=== PATIENT | male | born 1955 | race Caucasian/White ===

== ENCOUNTER 2017-08-29 12:44 | Emergency (ER) | payer OTHER ==
[2017-08-29 13:31] VITALS: BP 122/85
--- NOTE | 2017-08-29 13:50 | UC ---
Cardiac HPI - HPI Summary HPI Summary: Pt is a 62 y/o M c/o cough and pleuritic CP onset 1100 on Saturday (4 days) resolving [employer]. Associated Sx: MONTE (dull), fever, chills, stiff neck, sputum ( occasional; yellow). Denies: SOB. Aggravating factors: Respiration. Alleviating factors: OTC pain meds (ASA and tylenol) temporarily relieve Sx. PMHx: kidney stones. - History of Current Complaint Chief Complaint: UCRespiratory Stated Complaint: COUGH CHILLS Time Seen by Provider: 08/29/17 13:34 Hx Obtained From: Patient Onset/Duration: Lasting Days - Since Saturday AM Current Severity: Moderate Pain Intensity: 4 Chest Pain Location: Mid Sternal Character: Dull/Aching - MONTE - Allergy/Home Medications Allergies/Adverse Reactions: Allergies Allergy/AdvReac Type Severity Reaction Status Date / Time cephalexin [From Keflex] Allergy Rash Verified 08/29/17 13:24 ciprofloxacin Allergy Rash Verified 08/29/17 13:31 Home Medications: Home Medications Aspirin 81 mg CHEW TAB* 1 tab PO DAILY 08/29/17 [History Confirmed 08/29/17] Lisinopril 20 mg PO DAILY 08/29/17 [History Confirmed 08/29/17] Simvastatin 20 mg PO DAILY 08/29/17 [History Confirmed 08/29/17] PMH/Surg Hx/FS Hx/Imm Hx - Surgical History Surgical History: Yes Surgery Procedure, Year, and Place: TONSILECTOMY - Social History Alcohol Use: Rare Substance Use Type: None Smoking Status (MU): Never Smoked Tobacco Physical Exam Vital Signs: Initial Vital Signs Temp 99 F 08/29/17 13:24 Pulse 77 08/29/17 13:24 Resp 16 08/29/17 13:24 BP 122/85 08/29/17 13:24 Pulse Ox 100 08/29/17 13:24 Discharge - Discharge Plan Referrals: Myron Ryan MD [Primary Care Provider] -
--- NOTE | 2017-08-29 13:59 | UC ---
Respiratory Complaint HPI - HPI Summary HPI Summary: Pt is a 62 y/o M c/o productive cough with yellow phlegm onset four days ago and worsening. Associated Sx: dull MONTE and stiff neck which have since resolved; chills, pleuritic CP, fever (101-102 F). Denies: SOB. Aggravating factors: Respiration. Alleviating factors: OTC pain meds (ASA and tylenol) which temporarily relieved Sx. PMHx: kidney stones. - History of Current Complaint Chief Complaint: UCRespiratory Stated Complaint: COUGH CHILLS Time Seen by Provider: 08/29/17 13:34 Hx Obtained From: Patient Onset/Duration: Gradual Onset, Lasting Days - 4 days, Still Present - cough, Resolved - MONTE and stiff neck Timing: Constant Severity Currently: Mild Pain Intensity: 4 Character: Cough: Productive, Sputum Description: - yellow Aggravating Factors: Deep Breaths Alleviating Factors: OTC Meds - ASA/tylenol Associated Signs And Symptoms: Positive: Fever, Chills, Pleuritic Chest Pain - Allergies/Home Medications Allergies/Adverse Reactions: Allergies Allergy/AdvReac Type Severity Reaction Status Date / Time cephalexin [From Keflex] Allergy Rash Verified 08/29/17 13:24 ciprofloxacin Allergy Rash Verified 08/29/17 13:31 Home Medications: Home Medications Aspirin 81 mg CHEW TAB* 1 tab PO DAILY 08/29/17 [History Confirmed 08/29/17] Lisinopril 20 mg PO DAILY 08/29/17 [History Confirmed 08/29/17] Simvastatin 20 mg PO DAILY 08/29/17 [History Confirmed 08/29/17] PMH/Surg Hx/FS Hx/Imm Hx Endocrine History: Other Other Endocrine History: Neg: diabetes GI/ History: Kidney Stones - Surgical History Surgical History: Yes Surgery Procedure, Year, and Place: TONSILECTOMY - Family History Known Family History: Negative: Cardiac Disease, Hypertension, Diabetes - Social History Occupation: Employed Full-time Lives: With Family Alcohol Use: Rare Substance Use Type: None Smoking Status (MU): Never Smoked Tobacco Review of Systems Constitutional: Fever, Chills Respiratory: Cough - Productive, Other - Neg: SOB, Pos: Pleuritic CP Musculoskeletal: Other: - Stiff neck - resolved Neurological: Headache - resolved All Other Systems Reviewed And Are Negative: Yes Physical Exam - Summary Physical Exam Summary: VITAL SIGNS: Reviewed. GENERAL: Patient is a well-developed and nourished male who is lying comfortable in the stretcher. Patient is not in any acute respiratory distress. HEAD AND FACE: Normocephalic EYES: PERRLA, EOMI x 2. EARS: Hearing grossly intact. MOUTH: Oropharynx within normal limits. NECK: Supple, trachea is midline, no adenopathy, no JVD, no carotid bruit. CHEST: Symmetric, no tenderness at palpation LUNGS: Clear to auscultation bilaterally. No wheezing or crackles. CVS: Regular rate and rhythm, S1 and S2 present, no murmurs or gallops appreciated. ABDOMEN: Soft, non-tender. Bowel sounds are normal. No abdominal abnormal pulsations. EXTREMITIES: Full ROM in all major joints, no edema, no cyanosis or clubbing. NEURO: Alert and oriented x 3. No acute neurological deficits. Speech is normal and follows commands. SKIN: Dry and warm Triage Information Reviewed: Yes Vital Signs: Initial Vital Signs Temp 99 F 08/29/17 13:24 Pulse 77 08/29/17 13:24 Resp 16 08/29/17 13:24 BP 122/85 08/29/17 13:24 Pulse Ox 100 08/29/17 13:24 Vital Signs Reviewed: Yes UC Diagnostic Evaluation - Laboratory O2 Sat by Pulse Oximetry: 100 - Radiology Xray Interpretation: Positive (See Comments) - IMPRESSION: There may BE early pneumonia in the left midlung zone. Radiology Interpretation Completed By: Radiologist - Provider has reviewed report. Respiratory Course/Dx - Course Course Of Treatment: The patient was found to have increased BP in UC. The patient will follow up with PCP for better control of BP. Chest x-ray consistent with pneumonia. The patient was given azithromycin. The patient will follow-up with primary care physician the next 2-3 days. He was instructed to go to the emergency room or return to the urgent care if symptoms worsen. He understands and agrees. She is hemodynamically stable alert and oriented 3. - Differential Dx/Diagnosis Provider Diagnoses: Pneumonia Discharge - Sign-Out/Discharge Documenting (check all that apply): Patient Departure - Discharge Plan Condition: Stable Disposition: HOME Prescriptions: Azithromycin TAB* [Zithromax TAB (Z-SONIA) 250 mg #6 tabs] 2 tab PO .TODAY, THEN 1 DAILY #1 sonia Patient Education Materials: Pneumonia (ED) Referrals: Myron Ryan MD [Primary Care Provider] - Additional Instructions: FOLLOW UP WITH YOUR PRIMARY CARE PROVIDER WITHIN ONE WEEK FOR HIGH BLOOD PRESSURE NOTED TODAY. RETURN TO (URGENT CARE OR THE ED) FOR ANY WORSENING OR NEW SYMPTOMS - Billing Disposition and Condition Condition: STABLE Disposition: Home
--- NOTE | 2017-08-29 14:07 | RAD ---
Indication: Cough. 2 views of the chest including dual energy PA views demonstrate no mediastinal shift. Heart is of normal size and configuration. There may be some airspace disease in left midlung zone which may represent early pneumonia. No pneumothorax is noted. IMPRESSION: There may BE early pneumonia in the left midlung zone.
== END 2017-08-29 14:15 | disposition home or self-care (01) ==
LOC: UCEAST 12:44
DX: J18.9 Pneumonia, unspecified organism (principal); E11.9 Type 2 diabetes mellitus without complications; Z79.82 Long term (current) use of aspirin; Z87.442 Personal history of urinary calculi; Z88.1 Allergy status to other antibiotic agents
CPT/HCPCS: 71046; 99212; G0463

== ENCOUNTER 2017-09-10 19:54 | Emergency (ER) | payer OTHER ==
--- NOTE | 2017-09-10 20:18 | UC ---
HPI Febrile Illness - HPI Summary HPI Summary: This is elias Crowley documenting for attending Jono Banuelos MD. This patient is a 62 year old M presenting to [facility] [place] [facility] [place] with a chief complaint of persistent cough accompanied by fever since a couple of weeks ago. Pt has had an X ray and was given a Z Pack on 08/29 but has not gotten much better, aside from sleeping a little more. Patient reports yellow sputum, cough, and fatigue. Patient denies rhinorrhea. Pt is not immunocompromised. Pts partner has started to have a similar respiratory infection. - History of Current Complaint Time Seen by Provider: 09/10/17 19:59 Hx Obtained From: Patient Onset/Duration: Started Weeks Ago - 2-3 Timing: Constant Initial Severity: Moderate Current Severity: Moderate Pain Scale Used: 0-10 Numeric Associated Signs and Symptoms: Cough - Allergy/Home Medications Allergies/Adverse Reactions: Allergies Allergy/AdvReac Type Severity Reaction Status Date / Time cephalexin [From Keflex] Allergy Rash Verified 09/10/17 20:21 ciprofloxacin Allergy Rash Verified 09/10/17 20:21 PMH/Surg Hx/FS Hx/Imm Hx Previously Healthy: Yes - Surgical History Surgical History: Yes Surgery Procedure, Year, and Place: TONSILECTOMY - Family History Known Family History: Negative: Cardiac Disease, Hypertension, Diabetes - Social History Alcohol Use: Rare Substance Use Type: None Smoking Status (MU): Never Smoked Tobacco Review of Systems Constitutional: Fever, Fatigue Skin: Negative Eyes: Negative ENT: Other - Yellow sputum Respiratory: Cough Cardiovascular: Negative Gastrointestinal: Negative Genitourinary: Negative Motor: Negative Neurovascular: Negative Musculoskeletal: Negative Neurological: Negative, Headache All Other Systems Reviewed And Are Negative: Yes Physical Exam - Summary Physical Exam Summary: General: well-appearing, no pain distress Skin: warm, color reflects adequate perfusion, dry Head: normal Eyes: EOMI, MARTINEZ ENT: normal Neck: supple, nontender Respiratory: CTA, breath sounds present. Rhonchi bilaterally. Cardiovascular: RRR Abdomen: soft, nontender Bowel: present Musculoskeletal: normal, strength/ROM intact Neurological: sensory/motor intact, A&O x3 Psychological: affect/mood appropriate Triage Information Reviewed: Yes Vital Signs Reviewed: Yes Diagnostics - Laboratory Diagnostic Studies Completed/Ordered: Chest CT: PATCHY OPACITIES RIGHT UPPER AND MIDDLE LOBES AN LINGULA Course/Dx - Course Course Of Treatment: DICUSSED RESULTS WITH THE PATIENT. PATIENT HAS FAILED ZPAC , THEREFORE RX AUGMENTIN XR 2GM PO BID AND DOXYCYCLINE 100MG PO BID BOTH FOR 7 DAYS. F/U PMD; RECHECK SOONER IF WORSE. - Diagnoses Clinic Provider Diagnoses: PNEUMONIA Discharge - Sign-Out/Discharge Documenting (check all that apply): Patient Departure - Discharge Plan Condition: Stable Disposition: HOME Prescriptions: DOXYcycline CAP(*) [DOXYcycline 100MG CAP(*)] 100 mg PO BID #13 cap Patient Education Materials: Pneumonia (ED) Referrals: Myron Ryan MD [Primary Care Provider] - Additional Instructions: FOLLOW UP WITH YOUR DOCTOR. GET RECHECKED FOR ANY WORSENING OF YOUR CONDITION; CHEST PAIN, SHORTNESS OF BREATH, YOU FEEL ILL OR QUESTIONS OR CONCERNS. - Billing Disposition and Condition Condition: STABLE Disposition: Home
[2017-09-10 20:20] VITALS: BP 135/90
[2017-09-10] MEDS ORDERED: Amoxicillin/Clavulanate TAB* 875 MG PO ONE (21:12)
[2017-09-10] MEDS ORDERED: DOXYcycline CAP(*) 100 MG PO ONE (21:13)
--- NOTE | 2017-09-11 08:01 | RAD ---
HISTORY: PERSISTENT FEVER,YELLOW SPUTUM COMPARISONS: Chest x-ray dated August 29, 2017 TECHNIQUE: Multiple contiguous axial CT scans of the chest were obtained without intravenous contrast. Coronal and sagittal multiplanar reformations are also submitted for review. FINDINGS: The study is limited by the lack of intravenous contrast. This limits evaluation of the solid organs and vasculature. NECK AND THYROID: The lower neck and thyroid are unremarkable. CHEST WALL: There is no lower cervical, axillary, or supraclavicular lymphadenopathy by size criteria. HEART AND PERICARDIUM: The heart is unremarkable. AORTA AND PULMONARY VASCULATURE: The aorta and pulmonary vasculature are normal. MEDIASTINUM: There is no mediastinal lymphadenopathy by size criteria. MARY: There is no hilar lymphadenopathy by size criteria. AIRWAY AND ESOPHAGUS: The airway is unremarkable, without endobronchial filling defect. The esophagus is grossly normal. LUNG PARENCHYMA: There is patchy consolidation of the periphery of the left upper lobe, and to a lesser extent within the lingula and right middle lobe. PLEURA: No pleural abnormalities are noted. UPPER ABDOMEN: There is a low-attenuation lesion of the liver on axial image 16 measuring 1.6 cm in size. This is incompletely characterized on the current noncontrast CT examination BONES AND SOFT TISSUES: Degenerative changes are noted along the spine. OTHER: None. IMPRESSION: 1. MULTIFOCAL PATCHY CONSOLIDATION. RECOMMEND FOLLOW-UP UNTIL RESOLUTION TO EXCLUDE UNDERLYING PULMONARY PARENCHYMAL PATHOLOGY. 2. INCIDENTALLY NOTED IS A SMALL FOCUS OF HYPOATTENUATION WITHIN THE RIGHT LOBE OF THE LIVER. IN THE ABSENCE OF A HISTORY OF MALIGNANCY, THIS LIKELY REPRESENTS A HEMANGIOMA, BUT IS INCOMPLETELY CHARACTERIZED ON THE CURRENT EXAMINATION. RECOMMEND CONSIDERATION OF CORRELATION WITH HEPATIC ULTRASOUND, MULTIPHASE CONTRAST ENHANCED LIVER PROTOCOL CT, OR CONTRAST-ENHANCED MRI OF THE ABDOMEN IN THE NONACUTE SETTING. R2
== END 2017-09-10 21:31 | disposition home or self-care (01) ==
LOC: UCEAST 19:54
DX: Z88.1 Allergy status to other antibiotic agents (principal); J18.9 Pneumonia, unspecified organism
CPT/HCPCS: 71250; 99203; A9270-GY; G0463